=== PATIENT | female | born 1985 | race Hispanic/Latino ===

== ENCOUNTER 2018-07-30 14:36 | Emergency (ER) | payer OTHER ==
[2018-07-30 14:44] VITALS: BMI 26.2
[2018-07-30 14:47] VITALS: RESP 18
--- NOTE | 2018-07-30 16:36 | ED PDOC ---
HPI: Psych/Substance Abuse Time Seen by Provider: 07/30/18 15:34 Chief Complaint (Nursing): Psychiatric Evaluation Chief Complaint (Provider): Psychiatric Evaluation History Per: Patient History/Exam Limitations: no limitations Onset/Duration Of Symptoms: Hrs Current Symptoms Are (Timing): Better Associated Symptoms: Anxiety. denies: Suicidal Thoughts, Suicidal Plan Additional Complaint(s): 33 year old female with a PMHx of anxiety and bipolar disorder presents to the ER for an evaluation of anxiety attack onset today. Patient states, earlier today [facility] with many people and began to feel uneasy and nervous. She states the symptoms became worse at the restaurant where she had an anxiety attack. Her symptoms resolved in ER and she currently does no have ay complains. PMD: Carri Pinon Past Medical History Reviewed: Historical Data, Nursing Documentation, Vital Signs Vital Signs: Last Vital Signs Temp 97.7 F 07/30/18 14:45 Pulse 54 L 07/30/18 14:45 Resp 18 07/30/18 14:45 BP 103/66 07/30/18 14:45 Pulse Ox 99 07/30/18 14:45 - Medical History PMH: Anxiety Denies: Diabetes, Hepatitis, HIV, HTN, Seizures, Sexually Transmitted Disease - Family History Family History: States: Unknown Family Hx Denies: SD - Immunization History Hx Tetanus Toxoid Vaccination: No Hx Influenza Vaccination: No Hx Pneumococcal Vaccination: No - Home Medications Home Medications: Ambulatory Orders Medication Instructions Recorded Lurasidone HCl [Latuda] 60 mg PO HS 08/05/16 Quetiapine Fumarate [Seroquel] 200 mg PO DAILY 08/05/16 - Allergies Allergies/Adverse Reactions: Allergies Allergy/AdvReac Type Severity Reaction Status Date / Time No Known Allergies Allergy Verified 07/30/18 15:29 Review of Systems ROS Statement: Except As Marked, All Systems Reviewed And Found Negative Psych: Positive for: Anxiety. Negative for: Suicidal ideation (homicidal ideation), Other (hallucinations) Physical Exam - Reviewed Nursing Documentation Reviewed: Yes Vital Signs Reviewed: Yes - Physical Exam Appears: Positive for: Non-toxic, No Acute Distress Head Exam: Positive for: ATRAUMATIC, NORMAL INSPECTION, NORMOCEPHALIC Skin: Positive for: Normal Color, Warm, Dry Eye Exam: Positive for: Normal appearance ENT: Positive for: Normal ENT Inspection Neck: Positive for: Normal, Painless ROM, Supple. Negative for: Decreased ROM Cardiovascular/Chest: Positive for: Regular Rate, Rhythm. Negative for: Murmur Respiratory: Positive for: Normal Breath Sounds. Negative for: Decreased Breath Sounds, Wheezing, Respiratory Distress Gastrointestinal/Abdominal: Positive for: Soft. Negative for: Tenderness Back: Positive for: Normal Inspection Extremity: Positive for: Normal ROM. Negative for: Tenderness, Pedal Edema, Deformity Neurologic/Psych: Positive for: Alert, Oriented (x3), Mood/Affect (calm, cooperative and jovial). Negative for: Motor/Sensory Deficits - ECG O2 Sat by Pulse Oximetry: 99 (RA) Pulse Ox Interpretation: Normal Medical Decision Making Medical Decision Making: Time: 1533 Clinical Impression: anxiety Pt. evaluated by Anamika, outreach worker, who spoke with Dr. Burch and cleared pt. for discharge. Upon provider evaluation patient is medically stable, and requires no further treatment in the ED at this time. Patient will be discharged. Counseling was provided and all questions were answered regarding diagnosis and need for follow up with psychiatrist. There is agreement to discharge plan. Return if symptoms persist or worsen. Scribe Attestation: Documented by Ynes Oakes, acting as a scribe for Maximus Flores PA-C. Provider Scribe Attestation: All medical record entries made by the Scribe were at my direction and personally dictated by me. I have reviewed the chart and agree that the record accurately reflects my personal performance of the history, physical exam, medical decision making, and the department course for this patient. I have also personally directed, reviewed, and agree with the discharge instructions and disposition. Disposition - Clinical Impression Clinical Impression: Anxiety - Patient ED Disposition Is Patient to be Admitted: No - Disposition Referrals: [facility] [Outside] Disposition: Routine/Home Disposition Time: 16:30 Condition: STABLE Additional Instructions: FOLLOW UP WITH DR. REARDON (PSYCHIATRIST) FOR FURTHER EVALUATION DENNIS DILLARD, thank you for letting us take care of you today. Your provider was Chelly Solano MD and you were treated for PSYCH EVAL. The emergency medical care you received today was directed at your acute symptoms. If you were prescribed any medication, please fill it and take as directed. It may take several days for your symptoms to resolve. Return to the Emergency Department if your symptoms worsen, do not improve, or if you have any other problems. Please contact your doctor or call one of the physicians/clinics you have been referred to that are listed on the Patient Visit Information form that is included in your discharge packet. Bring any paperwork you were given at discharge with you along with any medications you are taking to your follow up visit. Our treatment cannot replace ongoing medical care by a primary care provider outside of the emergency department. Thank you for allowing the [facility] team to be part of your care today. If you had an X-Ray or CT scan: A Radiologist will review the ED reading if any change in treatment is needed we will contact you. If you had a blood, urine, or wound culture: It will take several days for the results, if any change in treatment is needed we will contact you. If you had an STI test: It will take 48 hours for the results. Please call after 1 week if you have not heard back. Instructions: Anxiety, Adult (DC) Forms: [facility] (Pakistani) Print Language: AUSTRALIAN
[2018-07-30 16:51] VITALS: BP 122/70; PULSE 65; TEMP 98
[2018-07-30 21:33] VITALS: O2SAT 99
== END 2018-07-30 16:20 | disposition home or self-care (01) ==
LOC: H.ER 14:36
DX: F41.9 Anxiety disorder, unspecified (principal)